=== PATIENT | female | born 1955 | race Caucasian/White ===

== ENCOUNTER 2019-03-15 07:58 | Emergency (ER) | payer MEDICARE, MEDICAID ==
[~2019-03-15] VITALS: Ht 162.6 cm; Wt 72.6 kg
--- NOTE | 2019-03-15 08:12 | ED Fall/Injury ---
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 (-) LOC. Denies any other injuries. States she has chronic neck pain, but it isn't any worse than normal @ this time. Occurred: just prior to arrival Severity: mild Injuries/Pain Location: head Context: slipped (in some water) Loss of Consciousness: no loss of consciousness Modifying Factors: Improves With Other (none) Associated Symptoms (Fall): Denies Symptoms (x/ as noted. ) Allergies and Home Medications Allergies Coded Allergies: adhesive tape (Verified Allergy, Unknown, 03/15/19) codeine (Verified Allergy, Unknown, nausea, 03/15/19) hydromorphone (Verified Allergy, Unknown, itching, 03/15/19) nalbuphine (Verified Allergy, Unknown, itching, 03/15/19) propoxyphene (Verified Allergy, Unknown, nausea, 03/15/19) Patient Home Medication List Home Medication List Reviewed: Yes Review of Systems Review of Systems Constitutional: see HPI : No Skin: see HPI, other (laceration back of head) All Other Systems Reviewed Negative Unless Noted: Yes (Negative excepted noted.) Past Magvfpe-Elkezp-Yvulfu Hx Patient Social History Recent Foreign Travel: No Contact w/Someone Who Travel: No Physical Exam Vital Signs Vital Signs - First Documented 03/15/19 08:00 Temp 97.6 Pulse 70 Resp 18 B/P (MAP) 142/75 (97) Pulse Ox 96 Capillary Refill : Height, Weight, BMI Height: '" Weight: lbs. oz. kg; BMI Method: General Appearance: WD/WN, no apparent distress, obese HEENT: normal ENT inspection Neck: non-tender Cardiovascular: regular rate, rhythm Respiratory: no respiratory distress Rectal: deferred Extremities: normal inspection Neurologic/Psychiatric: no motor/sensory deficits, alert, normal mood/affect, oriented x 3 Skin: warm/dry, other (superficial laceration scalp occipital apex area of head; bleeding curently controlled.) [place] Coma Score Best Eye Response: (4) Open Spontaneously Best Verbal Response: (5) Oriented Best Motor Response: (6) Obeys Commands [place] Total: 15 Progress/Results/Core Measures Results/Orders My Orders Orders - KATHLEEN HESS DO Ct Head Wo (03/15/19 08:27) Vital Signs/I&O 03/15/19 08:00 Temp 97.6 Pulse 70 Resp 18 B/P (MAP) 142/75 (97) Pulse Ox 96 Diagnostic Imaging Diagonstic Imaging: CT Plain Films/CT/US/NM/MRI: head (nothing acute) Departure Impression Primary Impression: Fall Additional Impressions: Contusion/hematoma occiput Superficial laceration of scalp Disposition: HOME, SELF-CARE Condition: Stable Departure-Patient Inst. Referrals: NO,LOCAL PHYSICIAN (PCP) Primary Care Physician Patient Instructions: Minor Head Injury (DC), Skin Abrasions (DC) Add. Discharge Instructions: All discharge instructions reviewed with patient and/or family. Voiced understanding. MAY TAKE 400 mg OF IBUPROFEN, &/OR 1000 mg OF TYLENOL EVERY 6 HOURS NEEDED FOR PAIN/HEADACHE. DO NOT TAKE GREATER THAN 4000 mg OF TYLENOL IN A 24 HOUR PERIOD OF TIME. KATHLEEN HESS DO March 15, 2019 08:12
--- NOTE | 2019-03-15 09:12 | Diagnostic Imaging Report ---
INDICATION: Fall with trauma to the head. Headache. TECHNIQUE: Routine non contrast-enhanced axial images were obtained from the skull base to the vertex. Auto Exposure Controls were utilized during the CT exam to meet ALARA standards for radiation dose reduction COMPARISON: None. FINDINGS: The ventricles and cortical sulci are age-appropriate. There is no midline shift or mass-effect. No acute intra-axial hemorrhage is seen. There are no abnormal areas of increased or decreased density to suggest acute hemorrhage or edema. No extra-axial masses or collections are present. Small soft tissue hematoma is noted posteriorly in the right. The underlying bony calvarium is intact. The visualized paranasal sinuses are unremarkable. The mastoid air cells are clear. IMPRESSION: 1. No acute intracranial abnormality. No CT evidence of mass, acute infarct or intracranial hemorrhage. Dictated by: Dictated on workstation # [id number]
[2019-03-15 09:35] VITALS: BP 126/62
== END 2019-03-15 09:36 | disposition home or self-care (01) ==
LOC: ER FS 08:03
DX: R40.2142 Coma scale, eyes open, spontaneous, at arrival to emergency department (principal); R40.2252 Coma scale, best verbal response, oriented, at arrival to emergency department; R40.2362 Coma scale, best motor response, obeys commands, at arrival to emergency department; Z91.040 Latex allergy status; Z88.5 Allergy status to narcotic agent; Z88.8 Allergy status to other drugs, medicaments and biological substances; W01.198A Fall on same level from slipping, tripping and stumbling with subsequent striking against other object, initial encounter
CPT/HCPCS: 70450